=== PATIENT | female | born 1955 | race Caucasian/White ===

== ENCOUNTER → 2020-09-30 10:57 | Outpatient (CLI) | payer MEDICARE, SELFPAY ==
--- NOTE | ~2020-09-30 | XR_ITS ---
XR lumbar spine 2-3V DATE: 09/30/2020 11:34 INDICATION: Segmental and somatic dysfunction the pelvic region TECHNIQUE: AP, lateral, coned lateral lumbosacral views COMPARISON: 07/11/2012 lumbar spine FINDINGS: There is diffuse osteopenia. There is moderately severe degenerative disc disease at L1-2, L2-3 and L3-4 with mild retrolisthesis at L2-3 and mild retrolisthesis at L3-4. There is moderate degenerative disc disease at L4-5. L5-S1 disc space is well preserved. No fracture or bone destruction is evident. The included lower thoracic and lumbar pedicles appear in tact. The sacroiliac joints appear normal. IMPRESSION: Multilevel degenerative disc disease, most pronounced in the upper lumbar spine, with ass ociated retrolisthesis at L2-3 and L3-4 Diffuse osteopenia Reviewed, dictated and finalized at location A. IMPRESSION: Multilevel degenerative disc disease, most pronounced in the upper lumbar spine, with associated retrolisthesis at L2-3 and L3-4 Diffuse osteopenia
--- NOTE | ~2020-09-30 | XR_ITS ---
EXAMINATION: XR hip RT min 2V DATE: 09/30/2020 11:34 INDICATION: Right hip pain. TECHNIQUE: 2 views of right hip were obtained. COMPARISON: None. FINDINGS: Bone alignment is normal. No fracture. There is mild right hip osteoarthritis. IMPRESSION: 1. Mild right hip osteoarthritis. Reviewed, dictated and finalized at location A.
== END ==
PROVIDERS: PCP Family Medicine; Visit Provider Family Medicine
DX: M99.05 Segmental and somatic dysfunction of pelvic region (principal); M99.03 Segmental and somatic dysfunction of lumbar region; M47.816 Spondylosis without myelopathy or radiculopathy, lumbar region; M48.061 Spinal stenosis, lumbar region without neurogenic claudication; M17.11 Unilateral primary osteoarthritis, right knee
CPT/HCPCS: 72100; 73502

== ENCOUNTER → 2020-12-31 13:49 | Outpatient (CLI) | payer MEDICARE, SELFPAY ==
--- NOTE | ~2020-12-31 | MM_ITS ---
EXAMINATION: MM screening manan BI w rodriguez HISTORY: Screening mammogram TECHNIQUE: Craniocaudal and mediolateral oblique 3-D tomosynthesis images were obtained and synthetic 2-D images were generated. CAD analysis was submitted and interpreted. COMPARISON: , 11/08/2017, 10/24/2016 lateral screening mammogram examinations BREAST PARENCHYMAL COMPOSITION: The breasts are almost entirely fatty. FINDINGS: There is no evidence of suspicious mass, calcification, or architectural distortion to sugg est malignancy in either breast. There has been no suspicious interval change. IMPRESSION: 1. No mammographic evidence of malignancy. 2. Recommend routine screening mammography in one year. BI-RADS Category 1: Negative Reviewed, dictated and finalized at location A. 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
--- NOTE | ~2020-12-31 | DEXA_ITS ---
Bone Density Report Name: Nicole Beltrán Age: 65 Sex: Female Ethnicity: White Date of : 1955 Indication: osteopenia; height loss; asthma or emphysema; hysterectomy; Referring Provider: IZZY DIAZ Study: Bone densitometry was performed. Exam Date: December 31, 2020 Accession number: [id number] Bone Density: Region BMD T-score Z-score Classification AP Spine (L1-L4) 0.925 -1.1 0.8 Osteopenia Femoral Neck (Left) 0.621 -2.1 -0.4 Osteopenia Total Hip (Left) 0.859 -0.7 0.7 Normal Femoral Neck (Right) 0.631 -2.0 -0.3 Osteopenia Total Hip (Right) 0.756 -1.5 -0.2 Osteopenia Total Hip Mean 0.808 -1.1 0.3 Osteopenia World Health Organization criteria for BMD impression classify patients as: Normal (T-score at or above -1.0), Osteopenia (T-score between -1.0 and -2.5), or Osteoporosis (T-score at or below -2.5). 10-year Fracture Risk(1): Major Osteoporotic Fracture 11% Hip Fracture 1.8% Reported Risk Factors: [place] (), Neck BMD=0.621, BMI=29.4 (1) FRAX(R) Version 3.08. Fracture probability calculated for an untreated patient. Fracture probability may be lower if the patient has received treatment. Previous Exams: Region Exam Age BMD T-score BMD Change BMD Change Date g/cm2 vs Baseline vs Previous AP Spine(L1-L4) 12/31/2020 65 0.925 -1.1 -0.014 0.004 11/15/2018 63 0.922 -1.1 -0.017 0.040* 10/20/2015 60 0.882 -1.5 -0.057* -0.090* 09/22/2013 58 0.971 -0.7 0.032* 0.032* 02/09/2010 54 0.939 -1.0 Total Hip(Left) 12/31/2020 65 0.859 -0.7 -0.040* -0.010 11/15/2018 63 0.870 -0.6 -0.030* -0.001 10/20/2015 60 0.870 -0.6 -0.029* -0.107* 09/22/2013 58 0.978 0.3 0.078* 0.078* 02/09/2010 54 0.899 -0.3 Total Hip(Right) 12/31/2020 65 0.756 -1.5 -0.149* -0.024 11/15/2018 63 0.781 -1.3 -0.125* -0.072* 10/20/2015 60 0.852 -0.7 -0.053* -0.030* 09/22/2013 58 0.882 -0.5 -0.023 -0.023 02/09/2010 54 0.906 -0.3 *Denotes significance at 95% confidence level, LSC for AP Spine = 0.022 g/cm2, LSC for Total Hip = 0.027 g/cm2 Clinical Information Provided by Patient: Has used the following medications: Vitamin D Has the following medical conditions: Asthma or Emphysema, Hysterectomy Patient maximum height was 69 Menopause Age: 48
== END ==
PROVIDERS: PCP Family Medicine; Visit Provider Obstetrics & Gynecology
DX: Z12.31 Encounter for screening mammogram for malignant neoplasm of breast (principal); Z78.0 Asymptomatic menopausal state; M85.88 Other specified disorders of bone density and structure, other site; M85.852 Other specified disorders of bone density and structure, left thigh; M85.851 Other specified disorders of bone density and structure, right thigh
CPT/HCPCS: 77063; 77067; 77080

== ENCOUNTER → 2022-07-26 10:53 | Outpatient (CLI) | payer MEDICARE, SELFPAY ==
--- NOTE | ~2022-07-26 | XR_ITS ---
Clinical Indication: Shortness of breath PA and lateral views of the chest: Comparison: 02/10/2017 Findings: The lungs are clear, without evidence of focal consolidation or pleural effusion. Cardiome diastinal silhouette is within normal limits. Bones and soft tissues are unremarkable. Impression: Normal chest. Reviewed, dictated and finalized at location . Impression: Normal chest.
== END ==
PROVIDERS: PCP Family Medicine; Visit Provider Nurse Practitioner Family
DX: R06.02 Shortness of breath (principal); J45.909 Unspecified asthma, uncomplicated
CPT/HCPCS: 71046

== ENCOUNTER 2022-10-05 08:25 | Outpatient (CLI) | payer MEDICARE, SELFPAY ==
[2022-10-05 11:31] LABS: Alanine Aminotransferase 27 U/L (6-35); Albumin Level 4.5 g/dL (3.5-5.1); Alkaline Phosphatase 76 U/L (38-126); Anion Gap 18 mmol/L (8-16); Aspartate Amino Transferase 41 U/L (14-36); Bilirubin,Total 0.5 mg/dL (0.2-1.3); Blood Urea Nitrogen 11 mg/dL (7-17); Calcium 9.5 mg/dL (8.4-10.2); Carbon Dioxide 27 mmol/L (22-30); Chloride 94 mmol/L (98-107); Cholesterol 219 mg/dL (0-200); Estimated Glomerular Filt Rate > 60; Glucose 94 mg/dL (65-110); HDL Direct 62 mg/dL; Potassium 4.4 mmol/L (3.4-5.0); Sodium 139 mmol/L (137-145); Triglycerides 159 mg/dL (<150)
[2022-10-05 11:42] LABS: LDL Cholesterol Direct 109 mg/dL
== END 2022-10-05 08:26 | disposition home or self-care (01) ==
PROVIDERS: PCP Family Medicine; Visit Provider Family Medicine
DX: I12.9 Hypertensive chronic kidney disease with stage 1 through stage 4 chronic kidney disease, or unspecified chronic kidney disease (principal); E78.2 Mixed hyperlipidemia; N18.9 Chronic kidney disease, unspecified
CPT/HCPCS: 36415; 80053; 80061

== ENCOUNTER 2023-07-31 08:47 | Outpatient (CLI) | payer MEDICARE, SELFPAY ==
[2023-07-31 13:04] LABS: Hematocrit 41.4 % (37.0-47.0); Hemoglobin 13.1 g/dL (12.0-15.0); Mean Corpuscular HGB Conc 31.6 g/dl (32-36); Mean Corpuscular Hemoglobin 29.4 pg (26-34); Mean Corpuscular Volume 92.8 fl (80-100); Mean Platelet Volume 11.7 fl (7.4-10.4); Platelet Count Result 273 k/mm3 (150-375); Red Blood Count 4.46 M/mm3 (4.2-5.4); Red Cell Distribution Width 13.5 % (11.5-14.5)
[2023-07-31 13:22] LABS: Alanine Aminotransferase 22 U/L (6-35); Albumin Level 4.7 g/dL (3.5-5.1); Alkaline Phosphatase 80 U/L (38-126); Anion Gap 8 mmol/L (4-12); Aspartate Amino Transferase 38 U/L (14-36); Bilirubin,Total 0.6 mg/dL (0.2-1.3); Blood Urea Nitrogen 16 mg/dL (7-17); Calcium 9.3 mg/dL (8.4-10.2); Carbon Dioxide 24 mmol/L (22-30); Chloride 106 mmol/L (98-107); Cholesterol 193 mg/dL (0-200); Estimated Glomerular Filt Rate > 60; Glucose 85 mg/dL (65-110); HDL Direct 62 mg/dL; Potassium 4.1 mmol/L (3.4-5.0); Sodium 138 mmol/L (137-145); Triglycerides 117 mg/dL (<150)
[2023-07-31 13:42] LABS: LDL Cholesterol Direct 100 mg/dL
[2023-07-31 14:01] LABS: Hemoglobin A1C 5.3 % (<5.7)
== END 2023-07-31 08:48 | disposition home or self-care (01) ==
LOC: ANHGOSHLAB 08:49
PROVIDERS: PCP Family Medicine; Visit Provider Family Medicine
DX: R73.09 Other abnormal glucose (principal); I12.9 Hypertensive chronic kidney disease with stage 1 through stage 4 chronic kidney disease, or unspecified chronic kidney disease; E66.3 Overweight; E78.2 Mixed hyperlipidemia; N18.9 Chronic kidney disease, unspecified
CPT/HCPCS: 36415; 80053; 80061; 83036; 84443; 85027

== ENCOUNTER 2023-12-26 13:33 | Outpatient (CLI) | payer MEDICARE, SELFPAY ==
--- NOTE | ~2023-12-26 | MM_ITS ---
EXAMINATION: MM screening manan BI w rodriguez HISTORY: Screening TECHNIQUE: Craniocaudal and mediolateral oblique 3-D tomosynthesis images were obtained and synthetic 2-D images were generated. CAD analysis was submitted and interpreted. COMPARISON: Comparison to multiple prior studies sequentially, with oldest reviewed study dated 10/19. BREAST PARENCHYMAL COMPOSITION: Not Dense: The breasts are almost entirely fatty. FINDINGS: There is no evidence of suspicious mass, calcification, or architectural distortion to sugg est malignancy in either breast. There has been no suspicious interval change. IMPRESSION: 1. No mammographic evidence of malignancy. 2. Recommend routine screening mammography in one year. BI-RADS Category 1: Negative Reviewed, dictated and finalized at location B. 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
== END 2023-12-26 13:34 | disposition home or self-care (01) ==
PROVIDERS: PCP Family Medicine; Visit Provider Family Medicine
DX: Z12.31 Encounter for screening mammogram for malignant neoplasm of breast (principal)
CPT/HCPCS: 77063; 77067

== ENCOUNTER 2024-04-04 10:33 | Outpatient (CLI) | payer MEDICARE, SELFPAY ==
--- NOTE | ~2024-04-04 | XR_ITS ---
EXAMINATION: XR chest 2V 04/04/2024 10:45 INDICATION: Cough PROCEDURE: 2 view chest COMPARISON: Comparison to multiple prior studies sequentially, with oldest reviewed study dated 10/19. FINDINGS: The lungs are clear. The cardiomediastinal silhouette is within normal limits. There are no pleural effusions. There is no pneumothorax suspected. There is a small hiatal hernia. IMPRESSION: 1: NO ACUTE CARDIOPULMONARY DISEASE. Reviewed, dictated and finalized at location B. 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
== END 2024-04-04 10:34 | disposition home or self-care (01) ==
LOC: GOSHIMG 10:34
PROVIDERS: PCP Family Medicine; Visit Provider Family Medicine
DX: R05.9 Cough, unspecified (principal); J45.20 Mild intermittent asthma, uncomplicated
CPT/HCPCS: 71046

== ENCOUNTER 2024-06-11 12:47 | Outpatient (CLI) | payer MEDICARE, SELFPAY ==
--- NOTE | ~2024-06-11 | CT_ITS ---
CT Scan of the Chest without Contrast: Clinical Indication: Asthma Technique: Contiguous sections were acquired throughout the chest without intravenous contrast. Dose reduction technique was used on this scan by utilizing automated exposure control and iterative recon struction technique. The dose-length product (DLP) was 326.71 mGy-cm. Findings: There is no evidence of any significant mediastinal, hilar or axillary lymphadenopathy. The mediastin al soft tissues appear normal. There is no evidence of pleural or pericardial effusion. The lungs are clear. No pulmonary nodules or infiltrates are noted. Images through the upper abdomen reveal moderate hiatal hernia. Impression: Clear lungs. Moderate hiatal hernia. Reviewed, dictated and finalized at location . Impression: Clear lungs. Moderate hiatal hernia.
== END 2024-06-11 12:48 | disposition home or self-care (01) ==
LOC: GOSHIMG 12:47
PROVIDERS: PCP Family Medicine; Visit Provider Family Medicine
DX: J45.20 Mild intermittent asthma, uncomplicated (principal); K44.9 Diaphragmatic hernia without obstruction or gangrene
CPT/HCPCS: 71250

== ENCOUNTER 2024-08-13 08:04 | Outpatient (CLI) | payer MEDICARE, SELFPAY ==
[2024-08-13 18:51] LABS: Basophils Percent Auto 1.1 % (0.2-1.2); Eosinophils Absolute Auto 0.1 K/mm3 (0-0.3); Eosinophils Percent Auto 3.8 % (0-4.4); Hematocrit 39.5 % (37.0-47.0); Hemoglobin 12.3 g/dL (12.0-15.0); Lymphocytes Absolute Auto 1.42 K/mm3 (0.9-3.2); Lymphocytes Percent Auto 38.6 % (18.3-44.2); Mean Corpuscular HGB Conc 31.1 g/dl (32-36); Mean Corpuscular Hemoglobin 28.5 pg (26-34); Mean Corpuscular Volume 91.6 fl (80-100); Mean Platelet Volume 11.6 fl (7.4-10.4); Monocytes Absolute Auto 0.3 K/mm3 (0.1-0.6); Neutrophils Absolute Auto 1.8 K/mm3 (1.3-6.7); Neutrophils Percent Auto 47.5 % (45.5-73.1); Platelet Count Result 297 k/mm3 (150-375); Red Blood Count 4.31 M/mm3 (4.2-5.4); Red Cell Distribution Width 14.1 % (11.5-14.5); White Blood Count 3.7 K/mm3 (4.5-10.0)
[2024-08-13 19:35] LABS: Alanine Aminotransferase 20 U/L (6-35); Albumin Level 4.3 g/dL (3.5-5.1); Alkaline Phosphatase 57 U/L (38-126); Anion Gap 11 mmol/L (4-12); Aspartate Amino Transferase 34 U/L (14-36); Bilirubin,Total 0.5 mg/dL (0.2-1.3); Blood Urea Nitrogen 9 mg/dL (7-17); Calcium 9.4 mg/dL (8.4-10.2); Carbon Dioxide 23 mmol/L (22-30); Chloride 105 mmol/L (98-107); Cholesterol 188 mg/dL (0-200); Estimated Glomerular Filt Rate > 60; Glucose 84 mg/dL (65-110); HDL Direct 63 mg/dL; Potassium 4.2 mmol/L (3.4-5.0); Sodium 139 mmol/L (137-145); Total Protein 7.3 g/dL (6.3-8.2); Triglycerides 136 mg/dL (<150)
[2024-08-13 19:47] LABS: LDL Cholesterol Direct 74 mg/dL
[2024-08-13 21:39] LABS: Hemoglobin A1C 5.8 % (<5.7)
== END 2024-08-13 08:05 | disposition home or self-care (01) ==
PROVIDERS: PCP Family Medicine; Visit Provider Nurse Practitioner Family
DX: J45.909 Unspecified asthma, uncomplicated (principal); I10 Essential (primary) hypertension; E78.2 Mixed hyperlipidemia; R73.09 Other abnormal glucose; E66.3 Overweight
CPT/HCPCS: 36415; 80053; 80061; 83036; 84443; 85025

== ENCOUNTER 2024-09-03 13:20 | Outpatient (CLI) | payer MEDICARE, SELFPAY ==
--- OUTSIDE RECORDS SUMMARY | 2024-09-03 13:24 | XMS_ITS | Clinical Summary ---
Author Organization [facility] Address [address] [place] [address] Care Team Providers Care Director Commercial Sales Name Role Phone Unavailable Primary Care Provider Unavailabl e Source Comments [facility],non-owned Affiliates and Associated Physician Practices is amultiple site organization consisting of ambulatory clinics and hospital sitesin [place], [place], [place] and [place]. This disclosure is being madepursuant to the Care Everywhere program and may not contain all information available regarding this patient. Last updated 17.[facility] Allergies Active Allergy Reactions Criticality Noted Date Comments Aspirin 06/14/2009 Hives Medications * Be aware that medications may not be up to date on this document. Alwaysverify current medications with the patient. verapamil CR (ISOPTIN-SR) 120 MG tablet Take 120 mg by mouth daily with breakfast. Active simvastatin (ZOCOR) 10 MG tablet Take 10 mg by mouth at bedtime. Active omeprazole (PRILOSEC) 20 MG capsule Take 20 mg by mouth daily before breakfast. Active amitriptyline (ELAVIL) 25 MG tablet Take 25 mg by mouth at bedtime. Active propoxyphene napsylate-acetam inophen (DARVOCET N-100) 100-650 MG tablet Take 1 Tab by mouth every 4 hours as needed for Pain. 40 0 07/07/2009 Active docusate sodium (COLACE) 100 MG capsule Take 1 Cap by mouth 2 times daily. 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 Gender Identity Not on file Sexual Orientation Not on file Last Filed Vital Signs Vital Sign Reading Time Taken Comments Blood Pressure 119/80 07/07/2009 12:30 PM CDT Pulse 86 07/07/2009 12:30 PM CDT Temperature 36.7 C (98 F) 07/07/2009 12:30 PM CDT Respiratory Rate 18 07/07/2009 12:30 PM CDT Oxygen Saturation 95% 07/07/2009 12:30 PM CDT Inhaled Oxygen Concentration - - Weight 98.9 kg (218 lb) 07/06/2009 10:28 AM CDT Height 175.3 cm (5' 9) 07/06/2009 10:28 AM CDT Body Mass Index 32.19 07/06/2009 10:28 AM CDT Plan of Treatment Health Maintenance Due Date Last Done Comments BONE DENSITY TESTING 1955 COLOGUARD (AGES 45-75) - COL ON CA SCREENING 1955 COLON MONITORING 1955 COLONOSCOPY - COLON CA SCREENING 1955 CT COLONOGRAPHY - COLON CA SCREENING 1955 Colorectal Cancer Screening 1955 FIT - COLON CA SCREENING 1955 FLEX SIG - COLON CA SCREENING 1955 MAMMOGRAM 1955 HEPATITIS C SCREENING 09/11/1971 DTAP/TDAP/TD VACCINES (1 - Tdap) 1972 PNEUMOCOCCAL VACCINE 50+ (1 of 1 - PCV) 09/16/2003 ZOSTER VACCINE (1 of 2) 09/16/2003 COVID-19 VACCINE ( - 2023-2 5 season) 2023 DEPRESSION SCREENING 02/20/2024 INFLUENZA VACCINE (#1) 2024 Respiratory Syncytial Virus (RSV) Vaccine Pt: or over 60 yrs (1 - 1-dose 75+ series) 2028 HEPATITIS B VACCINE Aged Out No longe r eligible based on patient's age to complete this topic HIB VACCINE Aged Out No longer eligi ble based on patient's age to complete this topic HPV VACCINE Aged Out No longer eligi ble based on patient's age to complete this topic MENINGOCOCCAL (Group B) VACC INE SHARED DECISION-MAKING Aged Out No longer eligibl e based on patient's age to complete this topic MENINGOCOCCAL GROUPS A/C/Y/W VACCINE Aged Out No longer eligible b ased on patient's age to complete this topic Advance Directives * Full Code (Latest Code Status on File) Date Activated Date Inactivated Comments 07/06/2009 4:05 PM 07/08/2009 2:37 AM
--- OUTSIDE RECORDS SUMMARY | 2024-09-03 13:24 | XMS_ITS | Clinical Summary ---
Author Organization [facility] Address [address] [place] [address] Care Team Providers Care Emergency Room Physician Name Role Phone ChrisnavyaHenna quiroz Primary Care Provider [phone] Allergies Active Allergy Reactions Criticality Noted Date Comments Aspirin Hives 10/28/2018 Hives and SOB Levofloxacin Other (see comment) 01/07/2012 Agitated and rapid breathing Medications PROAIR HFA 108 (90 Base) MCG/ACT inhaler INHALE 2 PUFFS BY MOUTH EVERY 4 TO 6 HOURS NEEDED 0 07/24/2018 Active QVAR REDIHALER 80 MCG/ACT AEROSOL, BREATH ACTIVATED Take 2 puffs by mouth 2 (two) times daily. 11 08/07/2018 Active verapamil SR 180 MG tablet TAKE 1 TABLET BY MOUTH ONCE DAILY WITH FOOD 0 08/21/2018 Active atorvastatin 10 MG tablet Take 10 mg by mouth daily. 3 08/21/2018 Active Cholecalciferol (VITAMIN D) 2000 units Tab Take 4,000 Units by mouth. Active multi vitamin/mineral s tablet Take 1 tablet by mouth daily. Active vitamin C 250 MG tablet Take 250 mg by mouth daily. Active predniSONE (DELTASONE) 20 MG tablet Take 2 tablets (40 mg total) by mouth daily for 5 days. 10 tablet 08/14/2024 08/20/19 25 Encounters Date Type Department Care Team Description 08/14/2024 9:56 PM CDT - 08/14/2024 11:15 PM CDT Emergency [facility] Emergency Room [id number] [place], [place] [id number] Jordi Turner MD Breathing Problem Discharge Disposition: Home or Self Care (Routine Discharge) 08/14/2024 Travel from Last 3 Months Family History Medical History Relation Comments Cancer Brother colon Diabetes Father Heart Disease Father Hypertension Father Heart Disease Mother Cancer Sister thryoid Relation Status Comments Brother Father Mother Sister Social History Tobacco Use Types Packs/Day Years Used Date Smoking Tobacco: Never Smokeless Tobacco: Never Alcohol Use Standard Drinks/Week Comments No 0 (1 standard drink = 0.6 oz pur e alcohol) AUDIT-C Answer Date Recorded Frequency of Alcohol Consumption Never 10/28/2018 Average Number of Drinks Not on file 019 Frequency of Binge Drinking Not on file 10/2018 Comments No Sex and Gender Information Value Date Recorded Sex Assigned at Not on file Legal Sex Female 6:37 PM CDT Gender Identity Not on file Sexual Orientation Not on file Last Filed Vital Signs Vital Sign Reading Time Taken Comments Blood Pressure 137/61 08/14/2024 11:00 PM CDT Pulse 80 08/14/2024 11:00 PM CDT Temperature 36.6 C (97.9 F) 08/14/2024 10:00 PM CDT Respiratory Rate 20 08/14/2024 11:00 PM CDT Oxygen Saturation 98% 08/14/2024 11:00 PM CDT Inhaled Oxygen Concentration - - Weight 89.8 kg (198 lb) 08/14/2024 10:00 PM CDT Height 172.7 cm (5' 8) 08/14/2024 10:00 PM CDT Body Mass Index 30.11 08/14/2024 10:00 PM CDT Plan of Treatment Health Maintenance Due Date Last Done Comments Colorectal Cancer Screening Colonoscopy (10 Years) 1955 Hepatitis C 09/16/1971 DTaP, Tdap and Td Vaccines ( 1 - Tdap) 1972 Pneumococcal Vaccine: 50+ Years (1 of 2 - PCV) 1972 Mammogram Screening 1993 RSV Immunization or 60+ Years (1 - Risk 60-74 years 1-dose series) 2013 Zoster Vaccines (2 of 3) 04/01/2015 02/04/2015 Annual Medicare Wellness Visit 2018 Dexa Scan (General) 2018 COVID-19 Vaccine (3 - 2023-2 5 season) 2023 05/09/2020, 04/18/2020 Meningococcal B Vaccine Aged Out No l onger eligible based on patient's age to complete this topic Meningococcal Vaccine Aged Out No deysi ingrid eligible based on patient's age to complete this topic RSV Immunizations Under 20 Months Aged Out No longer eligible b ased on patient's age to complete this topic Procedures Procedure Name Priority Date/Time Associated Diagnosis Comments XR CHEST PORTABLE STAT 08/14/2024 10: 21 PM CDT from Last 3 Months Results * XR CHEST PORTABLE (08/14/2024 10:21 PM CDT) Anatomical Region Laterality Modality Chest Radiographic Jessica ging 08/14/2024 11:0 1 PM CDT Impressions 08/14/2024 11:02 PM CDT IMPRESSION: ======== 1. No acute cardiopulmonary findings within limitations of exam Referred By: Interpreted By: Ari Villar MD, 08/14/2024 11:01 PM Narrative 08/14/2024 11:02 PM CDT [address] [place] [address] Examination: Chest x-ray 1 view Exam Date/Time: 08/14/2024 10:18 PM Reason For Exam: sob Wheezing began this afternoon Comparison: Chest radiograph 01/07/2019 Technique: Single AP view of the chest was obtained. Findings: Heart size stable from prior study and within normal limits for AP technique. No large effusion. No pneumothorax. No focal infiltrate or consolidation. Pulmonary vascularity within normal limits. Small hiatal hernia. ======== Procedure Note Ari Villar MD - 08/14/[address] [place] [address] Examination: Chest x-ray 1 view Exam Date/Time: 08/14/2024 10:18 PM Reason For Exam: sob Wheezing began this afternoon Comparison: Chest radiograph 01/07/2019 Technique: Single AP view of the chest was obtained. Findings: Heart size stable from prior study and within normal limits forAP technique. No large effusion. No pneumothorax. No focal infiltrateor consolidation. Pulmonary vascularity within normal limits. Smallhiatal hernia. ======== IMPRESSION: ======== 1. No acute cardiopulmonary findings within limitations of exam Referred By: Interpreted By: Ari Villar MD, 08/14/2024 11:01 PM Jordi Turner MD GENERAL IMAGING Final Resul t from Last 3 Months Insurance MEDICARE [facility] Care Teams Emergency Room Physician Relationship Specialty Start Date End Date Henna Jones DO [address] [place] [address] PCP - General FAMILY PRACTICE 08/14/24
--- OUTSIDE RECORDS SUMMARY | 2024-09-03 13:24 | XMS_ITS | Continuity of Care Document ---
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 [address] [place], [place], [id number], [place]. tel:[phone] Family History Family Member Type Diagnosis Age At Onset No Information Payers Payer name Insurance type Covered constitution party ID Authoriza tion(s) No Information Social [...]
--- OUTSIDE RECORDS SUMMARY | 2024-09-03 13:24 | XMS_ITS | Clinical Summary ---
Author Organization [facility] Address [address] [facility] [address] [place] [address] Phone Care Team Providers Care Organ Teacher Name Role Phone Jasmeet Garcia MD Primary Care Provider [phone] Mir Negro DO Unavailable [phone] Allergies Active Allergy Reactions Criticality Noted Date Comments Aspirin Unknown 01/06/2016 Levofloxacin In D5w Unknown 01/06/2016 Medications polyethylene glycol (MIRALAX) Powder Mix the entire bottle with 64 oz of a clear liquid. Use as directed by the office for colonoscopy prep. 255 g 0 6 Active verapamil (COVERA HS) 180 MG CAPSULE SR 24 HR Take 180 mg by mouth daily. Active atorvastatin (LIPITOR) 10 MG Tablet Take 10 mg by mouth daily. Active Cholecalciferol (SM VITAMIN D3) 4000 UNITS Capsule Take 1 Cap by mouth daily. Active Krebs-3 Fatty Acids (OMEGA 3 500) 500 MG Capsule Take 1 Cap by mouth daily. Active beclomethasone (QVAR) 80 MCG/ACT Aerosol Solution take 2 Puffs by inhalation 2 times daily. Active Immunizations Immunization Administration Dates Next Due Covid-19, Mrna, Lnp-s, Pf, 30 Mcg/0.3 Ml Dose (P fizer) 05/09/2020,04/18/2020 Family History Medical History Relation Name Comments Colon Cancer Brother 50's Diabetes Father Heart Attack Father High Cholesterol Father Hypertension Father Congestive Heart Failure Mother Diabetes Mother Hypertension Mother High Cholesterol Sister Hypertension Sister Thyroid Cancer Sister Relation Name Status Comments Brother Father Mother Sister Social History Tobacco Use Types Packs/Day Years Used Date Smoking Tobacco: Never Smokeless Tobacco: Never Alcohol Use Standard Drinks/Week Comments No 0 (1 standard drink = 0.6 oz pur e alcohol) Comments Unknown Sex and Gender Information Value Date Recorded Sex Assigned at Not on file Legal Sex Female 9:04 AM CDT Gender Identity Not on file Sexual Orientation Not on file Plan of Treatment Health Maintenance Due Date Last Done Comments Hepatitis C Virus (HCV) Screening 1955 Cologuard 1998 Immunochemical Fecal Occult Blood 1998 Zoster Immunization (2 of 3) 04/01/2015 02/04/2015 Pneumococcal Immunization (50+ years) (2 of 2 - PPSV23) 12/20/2019 12/19/2018 SARS-COV-2 Immunization ( season) 2023 01/03/2021, 05/09/2020, 04/18/2020 Influenza Immunization (#1) 10/20/202410/21, 12/02/2018, 10/15/2017, Additional history exists Colonoscopy 01/02/2026 01/03/2016 Colorectal Cancer Screening 01/02/2026 Respiratory Syncytial Virus (RSV) Immunization (Adult) (1 - 1-dose 75+ series) 2028 DTaP/Tdap/Td Immunization Discontinued 10/15/2017 TdaP Immunization Completed 10/15/2017 Pneumococcal Immunization Combined Discontinued 12/19/2018 Hepatitis B Immunization Aged Out No longer eligible based on patient's age to complete this topic Human Papillomavirus (HPV) Immunization Aged Out No longer eligible based on patient's age to complete this topic Meningococcal Immunization (ACWY) Aged Out No longer eligible based on patient's age to complete this topic Rotavirus Immunization Aged Out No lo nger eligible based on patient's age to complete this topic Procedures Procedure Name Priority Date/Time Associated Diagnosis Comments COLONOSCOPY Routine 01/03/2016 from Last 3 Months or Most Recently Relevant to Health Maintenance Results * COLONOSCOPY (01/03/2016) us Jasmeet Garcia MD PROCEDURE/MINOR SURGICAL TAMY MURPHY Final Result from Last 3 Months or Most Recently Relevant to Health Maintenance Insurance [facility] Care Teams Organ Teacher Relationship Specialty Start Date End Date Jasmeet Garcia MD [address] [place] [address] PCP - General Family Medicine 01/07/16 Mir Negro DO [address] [place] [address] Gastroenterology 01/07/16
[2024-09-08 18:08] LABS: I006-IgE Cockroach, German <0.10 kU/L (Class 0); T006-IgE Cedar, Mountain <0.10 kU/L (Class 0); T007-IgE Oak, White <0.10 kU/L (Class 0); T008-IgE Elm, American <0.10 kU/L (Class 0); T015-IgE Ash, White <0.10 kU/L (Class 0); T022-IgE Pecan, Hickory <0.10 kU/L (Class 0); W001-IgE Ragweed, Short <0.10 kU/L (Class 0); W011-IgE Thistle, Russian <0.10 kU/L (Class 0); W014-IgE Pigweed, Common <0.10 kU/L (Class 0); W016-IgE Rough Marshelder <0.10 kU/L (Class 0)
== END 2024-09-03 13:21 | disposition home or self-care (01) ==
LOC: ANHGOSHLAB 13:21
PROVIDERS: PCP Family Medicine; Visit Provider Nurse Practitioner Family
DX: J45.909 Unspecified asthma, uncomplicated (principal)
CPT/HCPCS: 82785

== ENCOUNTER 2024-09-24 08:06 | Outpatient (CLI) | payer MEDICARE, SELFPAY ==
--- OUTSIDE RECORDS SUMMARY | 2024-09-24 08:11 | XMS_ITS | Clinical Summary ---
Author Organization [facility] Address [address] [place] [address] Care Team Providers Care Debone Supervisor Name Role Phone Unavailable Primary Care Provider Unavailabl e Source Comments [facility],non-owned Affiliates and Associated Physician Practices is amultiple site organization consisting of ambulatory clinics and hospital sitesin [place], [place], [place] and [place]. This disclosure is being madepursuant to the Care Everywhere program and may not contain all information available regarding this patient. 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
--- OUTSIDE RECORDS SUMMARY | 2024-09-24 08:11 | XMS_ITS | Continuity of Care Document ---
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 [address] [facility] [address], [place], [place], [id number], [place]. tel:[phone] Family History Family Member Type Diagnosis Age At Onset No Information Payers Payer name Insurance type Covered alliance party ID Authoriza tion(s) No Information Social [...]
--- OUTSIDE RECORDS SUMMARY | 2024-09-24 08:11 | XMS_ITS | Clinical Summary ---
Author Organization [facility] Address [address], [facility] [address] [place] [address] Phone Care Team Providers Care Dry Cell Assembly Supervisor Name Role Phone Jasmeet Garcia MD Primary Care Provider [phone] Mir Negro DO Unavailable [phone] Allergies Active Allergy Reactions Criticality Noted [...] Take 1 Cap by mouth daily. Active [place]-3 Fatty Acids (OMEGA 3 500) 500 MG [...] Immunization (50+ years) (2 of 2 - PCV20 or PCV21) 12/20/2019 12/19/2018 SARS-COV-2 Immunization (4 - season) 2023 01/03/2021, 05/09/2020, 04/18/2020 Influenza Immunization (#1) 2024 0910/2019, 12/02/2018, 10/15/2017, Additional history exists Colonoscopy 01/02/2026 [...] Most Recently Relevant to Health Maintenance Insurance [facility] Care Teams Dry Cell Assembly Supervisor Relationship Specialty Start Date End Date Jasmeet Garcia MD [address] [place] [address] PCP - General Family Medicine 01/07/16 Mir Negro DO [address] [place] [address] Gastroenterology 01/07/16
--- OUTSIDE RECORDS SUMMARY | 2024-09-24 08:11 | XMS_ITS | Clinical Summary ---
Author Organization [facility] Cinda lucas [facility] Address [address] [facility] [place] [address] Care Team Providers Care Clarity Specialists Name Role Phone Unavailable Primary Care Provider Unavailabl e Social History Tobacco Use Types Packs/Day Years Used Date Smoking Tobacco: Never Assessed Comments Unknown Sex and Gender Information Value Date Recorded Sex Assigned at Not on file Legal Sex Female 2:24 PM CDT Gender Identity Not on file Sexual Orientation Not on file Plan of Treatment Upcoming Encounters Date Type Department Care Team (Late st Contact Info) Description 12/24/2024 1:30 PM FILBERT GROWER Office Visit [facility] Oncology and Hematology - Ben [address] [facility] [address] [address] Yong Johnson MD [address] [facility] [address] [place] [address] Health Maintenance Due Date Last Done Comments DTAP/TDAP/TD VACCINES (1 - Tdap) 1972 BREAST CANCER SCREENING 1993 COLORECTAL SCREENING 1998 Colorectal Cancer Screening 1998 FIT-DNA Q 3 years 1998 FIT/FOBT Q 1 year 1998 Flex Sig/CT Colonography Q 5 years 1998 PNEUMOCOCCAL VACCINE 50+ YEARS (1 of 1 - PCV) 09/16/19 04 ZOSTER VACCINE (1 of 2) 09/16/2003 OSTEOPOROSIS SCREENING 2018 INFLUENZA VACCINE (#1) 2024 RSV VACCINE (60+ or ) (1 - 1-dose 75+ series) 2028 Insurance MEDICARE PART A AND B
--- NOTE | 2024-09-24 16:23 | WPDPFTINT ---
PFT Procedure Performed PFT Procedure Performed Spirometry with Pre/Post Bronchodilator Plethysmography (Lung Vol) Diffusing Cap (DLCO) Flow Vol Loop PFT Interpretation This is a pulmonary function test with pre and post-bronchodilator spirometry, plethysmography and diffusing capacity. The test was performed and results interpreted in accordance with the 2019 and 2005 ATS/ERS Task Force guidelines respectively using the Global Lung Function Initiative-2012 reference equations. Patient demonstrated good effort and cooperation. Reproducibility criteria were met. The quality of the pre bronchodilator spirometry maneuver was Grade A and post bronchodilator spirometry maneuver was Grade A. Findings: Spirometry: There is decreased maximal expiratory airflow at all lung volumes with a concave expiratory flow tracing. The contour the inspiratory flow tracing is normal. The pre bronchodilator FVC is 2.54 L, 78% predicted. The pre bronchodilator FEV1 is 1.64 L, 66% predicted. The pre bronchodilator FEV1: FVC ratio 65%. The post bronchodilator FVC is 2.58 L, representing a 2% increase. The post bronchodilator FEV1 is 1.66 L, representing a 2% increase. The post bronchodilator FEV1: FVC ratio 64%. Plethysmography: The total lung capacity is 5.54 L, 98% predicted. The functional residual capacity is 2.81 L, 86% predicted. The residual volume is 2.75 L, 114% predicted. Diffusing capacity: The diffusing capacity unadjusted for hemoglobin and carboxyhemoglobin is 18.9, 86% predicted. The diffusing capacity adjusted for alveolar volume is 4.19, 103% predicted. Impression: There is a moderate obstructive abnormality. There is no significant improvement after inhaling a single dose of albuterol. The lung volumes are normal. The diffusing capacity is normal. There are no prior studies for comparison
== END 2024-09-24 08:07 | disposition home or self-care (01) ==
LOC: ANHPFT 08:06
PROVIDERS: PCP Family Medicine; Visit Provider Nurse Practitioner Family
DX: R94.2 Abnormal results of pulmonary function studies (principal); J45.20 Mild intermittent asthma, uncomplicated; R06.02 Shortness of breath; R05.9 Cough, unspecified
CPT/HCPCS: 94060; 94726; 94729

== ENCOUNTER 2024-12-10 08:13 | Outpatient (CLI) | payer MEDICARE, SELFPAY ==
--- OUTSIDE RECORDS SUMMARY | 2024-12-10 08:26 | XMS_ITS | Clinical Summary ---
Author Organization [facility] Cinda lucas [facility] Address [address] [facility] [place] [place] [address] Care Team Providers Care Vegetable Grower Name Role Phone Unavailable Primary Care Provider [...] st Contact Info) Description 12/24/2024 1:30 PM SHIPYARD PAINTING SUPERVISOR Office Visit [facility] Oncology and Hematology - Ben [address] [facility] [address] [address] Yong Johnson MD [address] [facility] [address] [place] [address] Health Maintenance Due Date Last [...] (1 - 1-dose 75+ series) 2028 Insurance [employer] Address: [place] [address] MEDICARE PART A AND B
--- OUTSIDE RECORDS SUMMARY | 2024-12-10 08:26 | XMS_ITS | Clinical Summary ---
Author Organization [facility] Address [address], [facility] [address] [place] [address] Phone Care Team Providers Care Ethnology Professor Name Role Phone Jasmeet Garcia MD Primary Care Provider [phone] Mir Negro DO Unavailable [phone] Allergies Active Allergy Reactions Criticality Noted [...] Take 1 Cap by mouth daily. Active [place]-3 Fatty Acids (OMEGA 3 500) 500 MG [...] 2 - PCV20 or PCV21) 12/20/2019 12/19/2018 Influenza Immunization (#1) 10/20/202410/21, 12/02/2018, 10/15/2017, Additional history exists SARS-COV-2 Immunization ( season) 2024 01/03/2021, 05/09/2020, 04/18/2020 Colonoscopy 01/02/2026 01/03/2016 Colorectal Cancer Screening 01/02/2026 [...] Most Recently Relevant to Health Maintenance Insurance [facility] Care Teams Ethnology Professor Relationship Specialty Start Date End Date Jasmeet Garcia MD [address] [facility] [place] [address] PCP - General Family Medicine 01/07/16 Mir Negro DO [address] [facility] [place] [address] Gastroenterology 01/07/16
--- OUTSIDE RECORDS SUMMARY | 2024-12-10 08:26 | XMS_ITS | Clinical Summary ---
Author Organization [facility] Address [address] [place] [address] Care Team Providers Care Maintenance Construction Helper Name Role Phone Unavailable Primary Care Provider Unavailabl e Source Comments [facility],non-owned Affiliates and Associated Physician Practices is amultiple site organization consisting of ambulatory clinics and hospital sitesin [place], [place], [place] and [place]. This disclosure is being madepursuant to the Care Everywhere program and may not contain all information available regarding this patient. Last updated 17.[facility] Allergies Active Allergy Reactions Criticality Noted Date [...] on file Legal Sex Female 8:46 AM CHALKER SOLES Gender Identity Not on file Sexual Orientation [...] 09/16/2003 ZOSTER VACCINE (1 of 2) 09/16/2003 DEPRESSION SCREENING 02/20/2024 COVID-19 VACCINE (1 - 2023-2 5 season) 2024 INFLUENZA VACCINE (#1) 2024 Respiratory Syncytial Virus [...]
[2024-12-10 15:07] LABS: Hematocrit 42.8 % (37.0-47.0); Hemoglobin 13.0 g/dL (12.0-15.0); Mean Corpuscular HGB Conc 30.4 g/dl (32-36); Mean Corpuscular Hemoglobin 27.7 pg (26-34); Mean Corpuscular Volume 91.3 fl (80-100); Platelet Count Result 302 k/mm3 (150-375); Red Blood Count 4.69 M/mm3 (4.2-5.4); White Blood Count 3.9 K/mm3 (4.5-10.0)
[2024-12-10 15:54] LABS: Alanine Aminotransferase 23 U/L (6-35); Albumin Level 4.7 g/dL (3.5-5.1); Alkaline Phosphatase 76 U/L (38-126); Anion Gap 11 mmol/L (4-12); Aspartate Amino Transferase 36 U/L (14-36); Bilirubin,Total 0.8 mg/dL (0.2-1.3); Blood Urea Nitrogen 11 mg/dL (7-17); Calcium 9.7 mg/dL (8.4-10.2); Carbon Dioxide 25 mmol/L (22-30); Chloride 103 mmol/L (98-107); Cholesterol 198 mg/dL (0-200); Estimated Glomerular Filt Rate 52; Glucose 77 mg/dL (65-110); HDL Direct 74 mg/dL; Potassium 4.4 mmol/L (3.4-5.0); Sodium 139 mmol/L (137-145); Total Protein 8.2 g/dL (6.3-8.2); Triglycerides 127 mg/dL (<150)
[2024-12-10 16:29] LABS: Thyroid Stimulating Hormone 1.110 uIU/mL (0.465-4.680)
[2024-12-10 18:09] LABS: Hemoglobin A1C 5.5 % (<5.7)
== END 2024-12-10 08:14 | disposition home or self-care (01) ==
LOC: ANHGOSHLAB 08:15
PROVIDERS: PCP Family Medicine; Visit Provider Nurse Practitioner
DX: E03.9 Hypothyroidism, unspecified (principal); E78.2 Mixed hyperlipidemia; N18.30 Chronic kidney disease, stage 3 unspecified; R73.03 Prediabetes; E55.9 Vitamin D deficiency, unspecified
CPT/HCPCS: 36415; 80053; 80061; 82306; 83036; 84443; 85027

== ENCOUNTER 2024-12-24 14:15 | Outpatient (CLI) | payer MEDICARE, SELFPAY ==
--- OUTSIDE RECORDS SUMMARY | 2004-07-25 03:45 | XMS_ITS | Continuity of Care Document ---
Author Organization [facility] Address [address] [place] [address] Phone Care Team Providers Care Central Sterile Tech Name Role Phone Clint Camacho MD Unavailable Unavailable Advance Directives Directive Yes / No Effective Date File Name No Information Encounters Encounter Description Practice Location Reason(s) For Visit Diagnoses Date Provider Providers Copied on Encounter [facility], [address], [place], [place], [id number], [place] tel:[phone] [facility] No Information Matthew-0 6-200 5 Janice Jaramillo. [address], [place], [place], [id number], [place]. tel:[phone] Family History Family Member Type Diagnosis Age At Onset No Information Payers Payer name Insurance type Covered green party ID Authoriza tion(s) No Information Social History Type Description Quantity Date Captured Comments Sex Female Smoking Status No Information Chief Complaint And Reason For Visit No Information Reason For Referral Reason For Referral No Information History Of Present Illness Encounter Date Complaint History Of Prese nt Illness No Information Functional Status Date Functional Assessmen t No Information Instructions Date Instruction Additional Infor mation No Information Assessments Type Assessment Date No Information Patient Care Teams Name Effective Dates (start - stop) Status Members No Information
--- NOTE | 2024-12-24 | CY_PTH ---
PATIENT: Nicole Beltrán LOC: [facility]#:[id number] AGE/SX: 69/F ROOM: RE12/24/[address]: Yong Johnson MD : 1955 BED: DIS: 12/24/2024 SPEC #: [id number] RECD: 12/25/24 07:47 STATUS: SOUT REQ #: [id number] LACIE: 12/24/24 00:[address]: Yong Johnson DEPT: [facility] Cytology RECD BY: Katarzyna Friedman ENTERED: 12/25/24 07:48 SP TYPE: Cytology OTHR DR: Henna Jones DO Tissues: A - Flow Procedures: Flow Cytometry
--- OUTSIDE RECORDS SUMMARY | 2024-12-24 13:30 | XMS_ITS | Encounter Summary ---
Author Organization [facility] KATELYN Lambert [facility] Address [address] [place] [address] Care Team Providers Care Residential Sales Representative Name Role Phone Unavailable Primary Care Provider Unavailabl e Reason for Referral * Radiology Services (Routine) - Closed Specialty Diagnoses / Procedures Referred By Gustabo t Referred To Contact Diagnoses Neutropenia, unspecified type Procedures US ABDOMEN COMPLETE Yong Johnson MD [address] [place] [address] Phone: tel: fax: [place] [address] Referral ID Status Reason Start Date Expiration Date V isits Requested Visits Authorized [id number] Closed [facility] CTS 12/24/2024 01/24/2026 1 1 TAL WATCH ASSEMBLER Reason for Visit * Reason Comments Establish Care Encounter Details Date Type Department Care Team (Late st Contact Info) Description 12/24/2024 1:30 PM DIGITAL WATCH ASSEMBLER Office Visit [facility] Oncology and Hematology [facility] [address] [facility] [address] [place] [address] Yong Johnson MD [address] [place] [address] Neutropenia, unspecified type (Primary Dx); Chronic anemia Social History Tobacco Use Types Packs/Day Years Used Date Smoking Tobacco: Never Smokeless Tobacco: Never Tobacco Cessation:Counseling Given: Not Answered Alcohol Use Standard Drinks/Week Comments Never 0 (1 standard drink = 0.6 oz pur e alcohol) Comments Unknown Sex and Gender Information Value Date Recorded Sex Assigned at Not on file Legal Sex Female 2:24 PM CDT Gender Identity Not on file Sexual Orientation Not on file documented as of this encounter Last Filed Vital Signs Vital Sign Reading Time Taken Comments Blood Pressure 137/84 12/24/2024 1:27 PM DIGITAL WATCH ASSEMBLER Pulse 80 12/24/2024 1:25 PM DIGITAL WATCH ASSEMBLER Temperature 36.8 C (98.2 F) 12/24/2024 1:25 PM DIGITAL WATCH ASSEMBLER Respiratory Rate 15 12/24/2024 1:25 PM DIGITAL WATCH ASSEMBLER Oxygen Saturation 95% 12/24/2024 1:25 PM DIGITAL WATCH ASSEMBLER Inhaled Oxygen Concentration - - Weight 88.4 kg (194 lb 12.8 oz) 12/24/2024 1:25 PM DIGITAL WATCH ASSEMBLER Height 172.7 cm (5' 8) 12/24/2024 1:25 PM DIGITAL WATCH ASSEMBLER Body Mass Index 29.62 12/24/2024 1:25 PM DIGITAL WATCH ASSEMBLER documented in this encounter Progress Notes * Yong Johnson MD - 12/24/2024 1:43 PM CST Hematology-oncology consult Note Requesting Physician Primary Care Physician No primary care provider on file. Problem list There is no problem list on file for this patient. Previous TREATMENT ? Measurable Disease ? Reason for Visit Nicole Beltrán is a 69 y.o. female who was referred for consultation for leukopenia. History of present illness This is a 69-year-old obese female with history of fibromyalgia, asthma, hypertension, hyperlipidemia and GERD referred to me for leukopenia. She has been complaining of generalized musculoskeletal discomfort. She denies any history of malignancy. Denies any history of liver disease. Shehas been dealing with knee and hip pain. Her weight and appetite stable. Denies any night sweats fevers and chills. Her labs from November 2024 showed WBC count of 3.9. She denies any other new complaints. Past Medical History Past Medical History: Diagnosis Date Asthma Diverticulosis of colon Hyperlipidemia Hypertension Fibromyalgia Surgical History Past Surgical History: Procedure Laterality Date HX CYSTOCELE REPAIR HX HYSTERECTOMY Medications Current Outpatient Medications Medication Sig Dispense Refill gabapentin (NEURONTIN) 100 mg capsule Take 100 mg by mouth 2 times daily. omeprazole (PriLOSEC) 20 mg Capsule, Delayed Release(E.C.) Take 1 Capsule by mouth 2 times daily. verapamiL (CALAN SR) 180 mg Sustained Release tablet Take 1 Tablet by mouth daily. OMEGA-3 ACID ETHYL ESTERS ORAL Take by mouth. atorvastatin (LIPITOR) 10 mg tablet Take 10 mg by mouth daily. cholecalciferol, Vitamin D3, 50 mcg (2,000 unit) Tablet Take 4,000 Units by mouth. No current facility-administered medications for this visit. Allergies Allergies Allergen Reactions Aspirin Hives Hives and SOB Iodinated Contrast Media Hives Levofloxacin Nausea and Vomiting Agitated and rapid breathing Immunizations: Immunization History Administered Date(s) Administered (Sendmail)(12 YR UP) COVID-19 VACCINE - EMERGENCY USE AUTHORIZATION, MRNA, [id number](PF) 30 MCG/0.3 MLIM SUSP 04/18/2020, 05/09/2020 Family History Family History Problem Relation Name Age of Onset Diabetes Father Heart Disease Father Diabetes Mother Heart Disease Mother No Known Problems Brother Colon Cancer Brother Thyroid Cancer Sister Diabetes Sister No Known Problems Sister No Known Problems Sister No Known Problems Child No Known Problems Child No Known Problems Child Social History Social History Tobacco Use Smoking status: Never Smokeless tobacco: Never Substance Use Topics Alcohol use: Never Review of Systems Constitutional: Patient did not mention fever; no night sweats; no anorexia; no weight loss; no fatique NEENT: Patient did not mention headache; no change in vision; no change in hearing; no sore throat;no dysphagia Respiratory: Patient did not mention shortness of breath; no pleuritic chest pain; no cough; no hemoptysis Cardiac: Patient did not mention cardiac-like chest pain; no palpitations; no orthopnea; no PND; noDOE Breasts: Patient did not mention tenderness; no masses GI: Patient did not mention abdominal pain; no nausea; no vomiting; no diarrhea; no hematochezia; no melena : Patient did not mention dysuria; no frequency; no hesitancy; no hematuria CASING RUNNING MACHINE TENDER: Musculosketetal: Patient did not mention bone pain; no arthralgia; no joint swelling; no myalgia; Skin: Patient did not mention pruritis; no rash; no petechiae; no ecchymoses Endocrine: Patient did not mention polydipsia; no polyuria; no unusual weight gain Neuro: Patient did not mention headache; no change in vision; no sensory changes; no muscle weakness; no confusion; no seizures Psych: Patient did not mention anxiety; no depression; Physical Exam Vitals: As per nursing note Constitutional: Well developed, well nourished, no acute distress, non-toxic appearance Teeth and gum. No signs of infection or swelling. Eyes: PERRL, conjunctiva normal HEENT: Atraumatic, external ears normal, nose normal, oropharynx moist, no pharyngeal exudates. no sinus tenderness Neck- normal range of motion, no tenderness, supple Respiratory: No respiratory distress, normal breath sounds, no rales, no wheezing Cardiovascular: Normal rate, normal rhythm, no murmurs, no gallops, no rubs GI: Soft, nondistended, normal bowel sounds, nontender, no splenomegaly, no hepatomegaly, no mass, no rebound, no guarding : No costovertebral angle tenderness Musculoskeletal: No edema, no tenderness, no deformities. Back- no tenderness Integument: Well hydrated, no rash, Digits and nails inspection normal Lymphatic: No lymphadenopathy noted Neurologic: Alert & oriented x 3, CN 2-12 normal, normal motor function, normal sensory function, no focal deficits noted Psychiatric: Speech and behavior appropriate ? labs No results found for this or any previous visit (from the past 24 hours). Labs from December 10, 2024 showed WBC 3.9 hemoglobin 13 MCV 91 platelet count 302,000 creatinine 1.0 bilirubin 0.8 Pathology ? Imaging & Other Studies Performance Status? Assessment / Plan: ? Leukopenia. Patient is a pleasant 69-year-old slightly obese female with history of fibromyalgia, asthma, hyperlipidemia, hypertension and GERD referred to me for leukopenia. She denies anynight sweats fever chills and weight loss. She has been complaining of knee and hip arthralgia. Shedenies any history of liver disease and alcohol abuse. Denies any history of malignancy. I have reviewed the labs with the patient and discussed the differential diagnosis that include drug-induced leukopenia, autoimmune leukopenia, nutritional deficiencies like iron and vitamin B12 deficiency, liver and spleen disorders, lymphoproliferative disorders and underlying bone marrow disorders like MDS. We also discussed the possibility of benign essential leukopenia. I will order the workup that will include CBC with differential, CMP, MADISON, flow cytometric analysis for leukemia, vitamin B12 folic acid and iron studies as well as abdominal ultrasound. No need for bone marrow biopsy testing at this time. Follow-up with me in 2 weeks. I have answered all the questions to patient and satisfaction. Hyperlipidemia. Patient is on Lipitor. Fibromyalgia. Patient is on gabapentin. GERD. Patient is on Prilosec. Hypertension. Patient is on verapamil. Thank you very much for allowing me to participate in Nicole Beltrán's evaluation and management. Please feel free to contact if I can be of any further assistance in your patient???s care requiringhematology or oncology evaluation. Sincerely, ? ? Yong Johnson M.D. cell TOBACCO COUNSELING She is not a tobacco/nicotine user. Yong Johnson MD ,12/24/2024 2:24 PM ? Total time spent 60 minutes, two third of the total time spent counseling patient [id number]. CC:? TAL WATCH ASSEMBLER documented in this encounter Plan of Treatment Upcoming Encounters Date Type Department Care Team (Late st Contact Info) Description 01/19/2025 4:30 PM DIGITAL WATCH ASSEMBLER Telephone Check Up [facility] Oncology and Hematology - Ben [address] [address] Yong Johnson MD [address] [facility] [address] [place] [address] Scheduled Orders Name Type Priority Associated Diagnoses Orde r Schedule CBC WITH DIFFERENTIAL Lab Stat Chronic anemia Expected: 12/24/2024, Expires: 12/24/2025 MADISON SCREEN W/REFLEX Lab Routine Neutropenia, unspecified type Expected: 12/24/2024, Expires: 12/24/2025 COMPREHENSIVE METABOLIC PANEL Lab Stat Chronic anemia Expected: 12/24/2024, Expires: 12/24/2025 FERRITIN Lab Routine Chronic anemia Expected: 12/24/2024, Expires: 12/24/2025 IRON, TIBC, AND PERCENT SATURATION Lab Routine Chronic anemia Expected: 12/24/2024, Expires: 12/24/2025 METHYLMALONIC ACID Lab Routine Chronic anemia Expected: 12/24/2024, Expires: 12/24/2025 TRANSFERRIN RECEPTOR TFR SOLUBLE Lab Routine Chronic anemia Expected: 12/24/2024, Expires: 12/24/2025 VITAMIN B12 AND FOLATE Lab Routine Chronic anemia Expected: 12/24/2024, Expires: 12/24/2025 US ABDOMEN COMPLETE Imaging Routine Neutropenia, unspecified type 1 Occurrences starting 12/24/2024 until 12/24/2025 FLOW CYTOMETRY PANEL Lab Routine Neutropenia, unspecified type Expected: 12/24/2024, Expires: 12/24/2025 documented as of this encounter Visit Diagnoses Diagnosis Neutropenia, unspecified type- Primary Chronic anemia Anemia, unspecified documented in this encounter
[2024-12-24 14:38] LABS: Hematocrit 40.6 % (37.0-47.0); Hemoglobin 12.7 g/dL (12.0-15.0); Immature Granulocyte Percent A 0.3 % (0-0.5); Lymphocytes Absolute Auto 1.87 K/mm3 (0.9-3.2); Mean Corpuscular HGB Conc 31.3 g/dl (32-36); Mean Corpuscular Hemoglobin 28.0 pg (26-34); Mean Corpuscular Volume 89.6 fl (80-100); Nucleated Red Blood Cells Absolute Auto 0.000 K/mm3 (0.0-0.012); Nucleated Red Blood Cells Perc 0.0 % (0.0-0.2); Platelet Count Result 312 k/mm3 (150-375); Red Blood Count 4.53 M/mm3 (4.2-5.4); White Blood Count 6.2 K/mm3 (4.5-10.0)
[2024-12-24 17:15] LABS: Alanine Aminotransferase 24 U/L (6-35); Albumin Level 4.7 g/dL (3.5-5.1); Alkaline Phosphatase 83 U/L (38-126); Anion Gap 11 mmol/L (4-12); Aspartate Amino Transferase 42 U/L (14-36); Bilirubin,Total 0.6 mg/dL (0.2-1.3); Blood Urea Nitrogen 11 mg/dL (7-17); Calcium 9.5 mg/dL (8.4-10.2); Carbon Dioxide 25 mmol/L (22-30); Chloride 102 mmol/L (98-107); Estimated Glomerular Filt Rate > 60; Glucose 92 mg/dL (65-110); Potassium 4.2 mmol/L (3.4-5.0); Sodium 138 mmol/L (137-145); Total Protein 8.3 g/dL (6.3-8.2)
[2024-12-24 17:20] LABS: Iron 88 ug/dL (37-170)
[2024-12-24 17:31] LABS: Percent Iron Saturation 19 % (20-50)
[2024-12-24 17:59] LABS: Ferritin 8.32 ng/mL (11.1-264)
[2024-12-24 18:27] LABS: Vitamin B12 703.0 pg/mL (239-931)
--- OUTSIDE RECORDS SUMMARY | 2024-12-25 13:50 | XMS_ITS | Clinical Summary ---
Author Organization [facility] Address [address] [place] [address] Care Team Providers Care Fireworks Maker Name Role Phone ChrisnavyaHenna quiroz Primary Care Provider [phone] Allergies Active Allergy Reactions Criticality Noted Date [...] Take 4,000 Units by mouth. Active multi vitamin/minerals tablet Take 1 tablet by mouth daily. Active vitamin C 250 MG tablet Take 250 mg by mouth daily. Active Family History Medical History Relation Comments Cancer [...] Scan (General) 2018 COVID-19 Vaccine (3 - 2024-2 6 season) 2024 05/09/2020, 04/18/2020 Influenza Adult (#1) 2024 02/04/2017 Hepatitis A Vaccines Aged Out No long er eligible based on patient's age to complete this topic Meningococcal B Vaccine Aged Out No l onger eligible based on patient's age to complete this topic Meningococcal Vaccine Aged Out No deysi ingrid eligible based on patient's age to complete this topic RSV Immunizations Under 20 Months Aged Out No longer eligible b ased on patient's age to complete this topic Insurance MEDICARE [facility] INS[facility] Care Teams Fireworks Maker Relationship Specialty Start Date End Date Henna Jones DO [address] [place] [address] PCP - General FAMILY PRACTICE 08/14/24
--- OUTSIDE RECORDS SUMMARY | 2024-12-25 13:50 | XMS_ITS | Clinical Summary ---
Author Organization [facility] Cinda lucas Cleo Address [address] [place] [address] Care Team Providers Care Block Trader Name Role Phone Unavailable Primary Care Provider Unavailabl e Allergies Active Allergy Reactions Criticality Noted Date Comments Aspirin Hives High 01/06/2016 Hives and SOB Iodinated Contrast Media Hives High 12/24/2024 Levofloxacin Nausea and Vomiting Low 01/07/2012 Agitated and rapid breathing Medications atorvastatin (LIPITOR) 10 mg tablet Take 10 mg by mouth daily. Active cholecalciferol , Vitamin D3, 50 mcg (2,000 unit) Tablet Take 4,000 Units by mouth. Active gabapentin (NEURONTIN) 100 mg capsule Take 100 mg by mouth 2 times daily. 12/16/2024 Active omeprazole (PriLOSEC) 20 mg Capsule, Delayed Release(E.C.) Take 1 Capsule by mouth 2 times daily. 12/02/2024 Active verapamiL (CALAN SR) 180 mg Sustained Release tablet Take 1 Tablet by mouth daily. 11/02/2024 Active OMEGA-3 ACID ETHYL ESTERS ORAL Take by mouth. Active Active Problems No known active problems Encounters Date Type Department Care Team Description 12/24/2024 1:30 PM PHYSICIAN NON INVASIVE CARDIOLOGIST Office Visit [facility] Oncology and Hematology - [place] [address] [place] [address] Yong Johnson MD Neutropenia, unspecified type (Primary Dx); Chronic anemia from Last 3 Months Family History Medical History Relation Name Comments No Known Problems Brother 1 Colon Cancer Brother 2 No Known Problems Child 1 No Known Problems Child 2 No Known Problems Child 3 Diabetes Father Heart Disease Father Diabetes Mother Heart Disease Mother Thyroid Cancer Sister 1 Diabetes Sister 2 No Known Problems Sister 3 No Known Problems Sister 4 Relation Name Status Comments Brother 1 Brother 2 Alive Child 1 Alive Child 2 Alive Child 3 Alive Father Mother Sister 1 Alive Sister 2 Alive Sister 3 Alive Sister 4 Alive Social History Tobacco Use Types Packs/Day Years [...] Comments Blood Pressure 137/84 12/24/2024 1:27 PM PHYSICIAN NON INVASIVE CARDIOLOGIST Pulse 80 12/24/2024 1:25 PM PHYSICIAN NON INVASIVE CARDIOLOGIST Temperature 36.8 C (98.2 F) 12/24/2024 1:25 PM PHYSICIAN NON INVASIVE CARDIOLOGIST Respiratory Rate 15 12/24/2024 1:25 PM PHYSICIAN NON INVASIVE CARDIOLOGIST Oxygen Saturation 95% 12/24/2024 1:25 PM PHYSICIAN NON INVASIVE CARDIOLOGIST Inhaled Oxygen Concentration - - Weight 88.4 kg (194 lb 12.8 oz) 12/24/2024 1:25 PM PHYSICIAN NON INVASIVE CARDIOLOGIST Height 172.7 cm (5' 8) 12/24/2024 1:25 PM PHYSICIAN NON INVASIVE CARDIOLOGIST Body Mass Index 29.62 12/24/2024 1:25 PM PHYSICIAN NON INVASIVE CARDIOLOGIST Plan of Treatment Upcoming Encounters Date Type Department Care Team (Late st Contact Info) Description 01/19/2025 4:30 PM PHYSICIAN NON INVASIVE CARDIOLOGIST Telephone Check Up [facility] Oncology and Hematology - [place] [address] [facility] [address] [place] [address] Yong Johnson MD [address] [facility] [address] [place] [address] Health Maintenance Due Date Last Done Comments DTAP/TDAP/TD VACCINES (1 - Tdap) 1972 BREAST CANCER SCREENING 1993 FIT-DNA Q 3 years 1998 FIT/FOBT Q 1 year 1998 Flex Sig/CT Colonography Q 5 years 1998 PNEUMOCOCCAL VACCINE 50+ YEA RS (1 of 1 - PCV) 09/16/2003 ZOSTER VACCINE (1 of 2) 09/16/2003 OSTEOPOROSIS SCREENING 2018 INFLUENZA VACCINE (#1) 2024 COVID-19 Vaccine ( season) 2024, 04/18/2020 COLORECTAL SCREENING 01/02/2026 01/03/2016 Colorectal Cancer Screening 01/02/2026 RSV VACCINE (60+ or ) (1 - 1-dose 75+ series) 2028 Insurance [employer] MEDICARE PART A AND B
--- OUTSIDE RECORDS SUMMARY | 2024-12-25 13:50 | XMS_ITS | Clinical Summary ---
Author Organization [facility] Address [address], [facility] [address] [place] [address] Phone Care Team Providers Care Java Flex Developer Name Role Phone Jasmeet Garcia MD Primary Care Provider [phone] Mir Negro DO Unavailable [phone] Allergies Active Allergy Reactions Criticality Noted [...] Take 1 Cap by mouth daily. Active Blaine-3 Fatty Acids (OMEGA 3 500) 500 MG [...] Most Recently Relevant to Health Maintenance Insurance [facility] Care Teams Java Flex Developer Relationship Specialty Start Date End Date Jasmeet Garcia MD [address] [facility] [place] [address] PCP - General Family Medicine 01/07/16 Mir Negro DO [address] [facility] [place] [address] Gastroenterology 01/07/16
[2024-12-26 12:08] LABS: ANA by IFA Rfx Titer/Pattern Negative (.)
== END 2024-12-24 14:16 | disposition home or self-care (01) ==
LOC: ANHLAB 14:16
PROVIDERS: PCP Family Medicine; Visit Provider Internal Medicine Hematology & Oncology
DX: D70.9 Neutropenia, unspecified (principal); D64.9 Anemia, unspecified
CPT/HCPCS: 36415; 80053; 82607; 82728; 82746; 83540; 83550; 84238; 85025; 86038; 88184

== ENCOUNTER 2024-12-29 10:34 | Outpatient (CLI) | payer MEDICARE, SELFPAY ==
--- NOTE | ~2024-12-29 | XR_ITS ---
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 Findings: No acute fracture or malalignment. No significant degenerative changes. Soft tissues unremarkable. Impression: No acute fracture or malalignment. Reviewed, dictated and finalized at location P. TROPLATING LABORER Impression: No acute fracture or malalignment.
--- NOTE | ~2024-12-29 | XR_ITS ---
PROCEDURE(S): X-ray right hip, minimum 2 views INDICATION(S): Pain in the right knee COMPARISON(S): 2020 TECHNIQUE: 2 radiographic images were submitted for interpretation. FINDINGS: Bones: There are no fractures seen. There are no destructive lesions or other lesions identified. Joints: There are no dislocations identified. There is minimal osteoarthritic type change, unchanged. IMPRESSION: No acute abnormalities are seen. No significant interval change Reviewed, dictated and finalized at location A. S [employer]
--- NOTE | ~2024-12-29 | MM_ITS ---
EXAMINATION: MM screening manan BI w rodriguez HISTORY: Screening TECHNIQUE: Craniocaudal and mediolateral oblique 3-D tomosynthesis images were obtained and synthetic 2-D images were generated. CAD analysis was submitted and interpreted. COMPARISON: Comparison to multiple prior studies sequentially, with oldest reviewed study dated 10/20/2015. BREAST PARENCHYMAL COMPOSITION: Not Dense: The breasts are almost entirely fatty. FINDINGS: There is no evidence of suspicious mass, calcification, or architectural distortion to suggest malignancy in either breast. There has been no suspicious interval change. IMPRESSION: 1. No mammographic evidence of malignancy. 2. Recommend routine screening mammography in one year. BI-RADS Category 1: Negative Reviewed, dictated and finalized at location B. 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
== END 2024-12-29 10:35 | disposition home or self-care (01) ==
LOC: MICIMG 10:35
PROVIDERS: PCP Family Medicine; Visit Provider Family Medicine
DX: Z12.31 Encounter for screening mammogram for malignant neoplasm of breast (principal); M25.561 Pain in right knee; M25.551 Pain in right hip
CPT/HCPCS: 73502; 73564; 77063; 77067

== ENCOUNTER 2025-01-05 08:37 | Outpatient (CLI) | payer MEDICARE, SELFPAY ==
[2025-01-05 13:21] LABS: Anion Gap 10 mmol/L (4-12); Blood Urea Nitrogen 14 mg/dL (7-17); Calcium 9.7 mg/dL (8.4-10.2); Carbon Dioxide 23 mmol/L (22-30); Chloride 104 mmol/L (98-107); Estimated Glomerular Filt Rate 56; Glucose 84 mg/dL (65-110); Potassium 3.9 mmol/L (3.4-5.0); Sodium 137 mmol/L (137-145)
== END 2025-01-05 08:38 | disposition home or self-care (01) ==
PROVIDERS: PCP Family Medicine; Visit Provider Family Medicine
DX: N18.30 Chronic kidney disease, stage 3 unspecified (principal)
CPT/HCPCS: 36415; 80048

== ENCOUNTER 2025-01-08 06:59 | Outpatient (CLI) | payer MEDICARE, SELFPAY ==
--- NOTE | ~2025-01-08 | US_ITS ---
Examination: US abdomen complete Clinical History: Neutropenia . Comparison: CT abdomen and pelvis 08/03/2017 Technique: Complete abdominal sonography Findings: Liver: Normal size. Normal echotexture. No intrahepatic biliary ductal dilatation. Normal hepatopedal flow main portal vein. Common duct: Normal caliber, 2 mm. Gallbladder: No stones. No wall thickening. No pericholecystic fluid. Spleen: Unremarkable. Pancreas: Unremarkable. Kidneys: 22 mm cyst right kidney. 20 mm cyst left kidney. Aorta: No aneurysmal dilatation. Retrohepatic IVC: Unremarkable. IMPRESSION: 1. No acute findings. Reviewed, dictated and finalized at location R. HER VISUALLY IMPAIRED IMPRESSION: 1. No acute findings.
== END 2025-01-08 07:00 | disposition home or self-care (01) ==
PROVIDERS: PCP Family Medicine; Visit Provider Internal Medicine Hematology & Oncology
DX: D70.9 Neutropenia, unspecified (principal)
CPT/HCPCS: 76700